=== PATIENT | male | born 1945 | race Caucasian/White ===

== ENCOUNTER 2016-12-02 01:39 | Inpatient (IN) | payer MEDICARE, OTHER ==
[2016-12-02] VITALS (12 sets, daily range): BP systolic 83–116; BP diastolic 45–68
[~2016-12-02] VITALS: Ht 182.9 cm; Wt 103.0 kg
[~2016-12-02 01:39] MED LIST: AMOX/K CLAV875 M1 PO; BENICAR20 MG PO; CHERATUSSIN OR; CRESTOR20 MG PO; LIPITOR20 MG OR; MEDDOSEPAK PO; METOPROL TAR25 MG PO; NORVASC5 MG OR; PLAVIX75 MG PO; ZPAK PO
[2016-12-02 02:21] LABS: HEMATOCRIT 34.1 % (39.0-50.0); HEMOGLOBIN 11.4 g/dl (14.0-18.0); IMMATURE GRANULOCYTES 0.3 % (0.0-1.0); MEAN CELL VOLUME 83.4 fL CALC (80.0-100.0); MEAN CORPUSCULAR HGB 27.9 pG CALC (26.0-32.0); MEAN CORPUSCULAR HGB CONC 33.4 g/L CALC (32.0-36.0); NEUT# 4.81 thou/uL (1.82-7.42); RED BLOOD COUNT 4.09 mill/uL (4.70-6.10); RED CELL DISTRI WIDTH 13.3 % (11.5-15.5)
[2016-12-02] MEDS ORDERED: ASPIRIN325 MG PO (02:26)
[2016-12-02 02:41] LABS: ALBUMIN 4.1 g/dL (3.2-5.0); ALKALINE PHOSPHATASE 77 u/l (38-126); ANION GAP 19 (6-22 (CALC)); BILIRUBIN, TOTAL 0.8 mg/dL (0.0-1.4); BUN 27 mg/dL (8-23); BUN/CREATININE RATIO 21 (12-20 (CALC)); CALCIUM 9.3 mg/dL (8.4-10.2); CARBON DIOXIDE 23 mmol/l (22-30); CHLORIDE 104 mmol/l (95-108); CREATININE 1.3 mg/dL (0.7-1.3); GFR 55 ML/MIN (>=60 (CALC)); GFR FOR AFR.AMER. > 60 ML/MIN (>=60 (CALC)); GLUCOSE 108 mg/dL (82-115); POTASSIUM 4.4 mmol/l (3.5-5.1); SGOT/AST 21 u/l (19-48); SGPT/ALT 38 u/l (11-66); SODIUM 142 mmol/l (137-146)
[2016-12-02 02:49] LABS: URINE BILIRUBIN - DIPSTICK NEGATIVE (NEGATIVE); URINE BLOOD DIPSTICK SMALL (NEGATIVE); URINE CLARITY CLEAR; URINE COLOR YELLOW; URINE GLUCOSE - DIPSTICK NEGATIVE (NEGATIVE); URINE KETONE NEGATIVE (NEGATIVE); URINE LEUK ESTERASE NEGATIVE (NEGATIVE); URINE NITRITE - DIPSTICK NEGATIVE (Negative); URINE PROTEIN - DIPSTICK NEGATIVE (NEG-TRACE); URINE SPECIFIC GRAVITY 1.025; URINE UROBILINOGEN - DIPSTICK 0.2 E.U./dL (0.2)
[2016-12-02 03:16] LABS: URINE BACTERIA RARE hpf; URINE SQUAMOUS EPITHELIAL CELL RARE EPI/hpf (0-FEW); URINE WBC 0-2 WBC/hpf (0-5)
[2016-12-02 10:34] LABS: CHOLESTEROL HDL RATIO 3.5 (<4.4 (CALC)); MAGNESIUM 1.3 mg/dL (1.6-2.3)
[2016-12-03 04:20] VITALS: BP 101/53
[2016-12-03 07:37] VITALS: BP 122/59
[2016-12-03 10:06] LABS: HEMATOCRIT 31.7 % (39.0-50.0); HEMOGLOBIN 10.4 g/dl (14.0-18.0); IMMATURE GRANULOCYTES 0.3 % (0.0-1.0); MEAN CELL VOLUME 84.3 fL CALC (80.0-100.0); MEAN CORPUSCULAR HGB 27.7 pG CALC (26.0-32.0); MEAN CORPUSCULAR HGB CONC 32.8 g/L CALC (32.0-36.0); NEUT# 2.37 thou/uL (1.82-7.42); RED BLOOD COUNT 3.76 mill/uL (4.70-6.10); RED CELL DISTRI WIDTH 13.5 % (11.5-15.5)
[2016-12-03 10:17] LABS: ANION GAP 14 (6-22 (CALC)); BUN 16 mg/dL (8-23); BUN/CREATININE RATIO 16 (12-20 (CALC)); CALCIUM 8.9 mg/dL (8.4-10.2); CARBON DIOXIDE 25 mmol/l (22-30); CHLORIDE 106 mmol/l (95-108); GFR > 60 ML/MIN (>=60 (CALC)); GFR FOR AFR.AMER. > 60 ML/MIN (>=60 (CALC)); GLUCOSE 130 mg/dL (82-115); MAGNESIUM 1.9 mg/dL (1.6-2.3); POTASSIUM 4.2 mmol/l (3.5-5.1); SODIUM 141 mmol/l (137-146)
[2016-12-03 11:20] VITALS: BP 114/67
[2016-12-03] MEDS ORDERED: FLORASTOR250 M1 PO (12:45)
[2016-12-03] MEDS ORDERED: KEFLEX500 M1 PO (12:45)
== END 2016-12-03 13:25 | disposition home or self-care (01) | DRG 153 ==
LOC: ED 01:39 → ED-I 03:15 → ED 03:35 → MS2 03:36
PROVIDERS: Emergency Medicine; Nurse Practitioner Family; ADMIT Internal Medicine; ATTEND Internal Medicine
DX: J02.0 Streptococcal pharyngitis (principal); N17.9 Acute kidney failure, unspecified; I95.9 Hypotension, unspecified; E86.0 Dehydration; E83.42 Hypomagnesemia; D64.9 Anemia, unspecified; I10 Essential (primary) hypertension; E78.5 Hyperlipidemia, unspecified; I25.10 Atherosclerotic heart disease of native coronary artery without angina pectoris; I25.2 Old myocardial infarction; Z95.5 Presence of coronary angioplasty implant and graft

== ENCOUNTER 2016-12-25 01:11 | Inpatient (IN) | payer MEDICARE, OTHER ==
[~2016-12-25] VITALS: Ht 182.9 cm; Wt 100.2 kg
[2016-12-25] VITALS (8 sets, daily range): BP systolic 80–132; BP diastolic 38–69
[~2016-12-25 01:11] MED LIST changes: +ASPIRIN325 MG PO; +FLORASTOR250 M1 PO; +KEFLEX500 M1 PO
[2016-12-25 01:54] LABS: HEMATOCRIT 36.4 % (39.0-50.0); IMMATURE GRANULOCYTES 0.3 % (0.0-1.0); MEAN CELL VOLUME 83.9 fL CALC (80.0-100.0); MEAN CORPUSCULAR HGB 27.6 pG CALC (26.0-32.0); NEUT# 6.03 thou/uL (1.82-7.42); RED BLOOD COUNT 4.34 mill/uL (4.70-6.10); RED CELL DISTRI WIDTH 13.6 % (11.5-15.5)
[2016-12-25 02:16] LABS: ALBUMIN 4.2 g/dL (3.2-5.0); CALCIUM 9.4 mg/dL (8.4-10.2); CREATININE 1.5 mg/dL (0.7-1.3); POTASSIUM 4.6 mmol/l (3.5-5.1); TOTAL PROTEIN 7.1 g/dL (6.3-8.2)
[2016-12-25 02:41] LABS: URINE BILIRUBIN - DIPSTICK NEGATIVE (NEGATIVE); URINE BLOOD DIPSTICK SMALL (NEGATIVE); URINE CLARITY CLEAR; URINE COLOR YELLOW; URINE GLUCOSE - DIPSTICK NEGATIVE (NEGATIVE); URINE KETONE NEGATIVE (NEGATIVE); URINE LEUK ESTERASE NEGATIVE (NEGATIVE); URINE NITRITE - DIPSTICK NEGATIVE (Negative); URINE PROTEIN - DIPSTICK TRACE mg/dL (NEG-TRACE); URINE SPECIFIC GRAVITY 1.025; URINE UROBILINOGEN - DIPSTICK 0.2 E.U./dL (0.2)
[2016-12-25 02:59] LABS: URINE BACTERIA FEW hpf; URINE SQUAMOUS EPITHELIAL CELL FEW EPI/hpf (0-FEW)
[2016-12-26 00:07] VITALS: BP 100/60
[2016-12-26 04:10] VITALS: BP 103/53
[2016-12-26 07:55] VITALS: BP 111/47
[2016-12-26 11:05] VITALS: BP 99/48
[2016-12-26 11:21] LABS: ANION GAP 14 (6-22 (CALC)); BUN 18 mg/dL (8-23); BUN/CREATININE RATIO 19 (12-20 (CALC)); CALCIUM 8.8 mg/dL (8.4-10.2); CARBON DIOXIDE 25 mmol/l (22-30); CHLORIDE 110 mmol/l (95-108); CREATININE 0.9 mg/dL (0.7-1.3); GFR > 60 ML/MIN (>=60 (CALC)); GFR FOR AFR.AMER. > 60 ML/MIN (>=60 (CALC)); GLUCOSE 118 mg/dL (82-115); POTASSIUM 4.9 mmol/l (3.5-5.1); SODIUM 144 mmol/l (137-146)
[2016-12-26] MEDS ORDERED: AMOX/K CLAV875 M1 PO (13:00)
[2016-12-26] MEDS ORDERED: ADLT ASA LOW81 MG PO (13:00)
== END 2016-12-26 15:01 | disposition home or self-care (01) | DRG 864 ==
LOC: ED 01:11 → ED-I 03:00 → ED 03:28 → MS2 03:29
PROVIDERS: Emergency Medicine; Internal Medicine; ADMIT Internal Medicine; ATTEND Internal Medicine
DX: R50.9 Fever, unspecified (principal); N17.9 Acute kidney failure, unspecified; E86.0 Dehydration; I10 Essential (primary) hypertension; J02.0 Streptococcal pharyngitis; I25.10 Atherosclerotic heart disease of native coronary artery without angina pectoris; N52.9 Male erectile dysfunction, unspecified; E78.5 Hyperlipidemia, unspecified; I25.2 Old myocardial infarction; Z95.5 Presence of coronary angioplasty implant and graft
CPT/HCPCS: Q9967

== ENCOUNTER 2018-03-02 09:44 | Day surgery (SDC) | payer MEDICARE, OTHER ==
[~2018-03-02] VITALS: Ht 182.9 cm; Wt 106.6 kg
[~2018-03-02 09:44] MED LIST changes: +ADLT ASA LOW81 MG PO; +ASPIRIN81 MG PO
[2018-03-02 14:35] VITALS: BP 124/71
== END 2018-03-02 15:25 | disposition home or self-care (01) ==
LOC: ENDO 09:44
PROVIDERS: ATTEND Surgery
PROC: 0DJD8ZZ Inspection of Lower Intestinal Tract, Via Natural or Artificial Opening Endoscopic (ICD-10-PCS; principal; 2018-03-02)
DX: Z12.11 Encounter for screening for malignant neoplasm of colon (principal); K57.30 Diverticulosis of large intestine without perforation or abscess without bleeding; K64.8 Other hemorrhoids; Z80.0 Family history of malignant neoplasm of digestive organs; I25.10 Atherosclerotic heart disease of native coronary artery without angina pectoris; Z95.5 Presence of coronary angioplasty implant and graft

== ENCOUNTER 2021-02-27 06:54 | Observation (INO) | payer MEDICARE, OTHER ==
[~2021-02-27] VITALS: Ht 182.9 cm; Wt 103.9 kg
[2021-02-27 07:38] LABS: HEMATOCRIT 38.6 % (39.0-50.0); HEMOGLOBIN 12.5 g/dl (14.0-18.0); IMMATURE GRANULOCYTES 0.3 % (0.0-5.0); MEAN CORPUSCULAR HGB 29.3 pG CALC (26.0-32.0); MEAN CORPUSCULAR HGB CONC 32.4 g/dL CAL (32.0-36.0); NEUT# 4.68 thou/uL (1.82-7.42); RED BLOOD COUNT 4.27 mill/uL (4.70-6.10); RED CELL DISTRI WIDTH 13.9 % (11.5-15.5)
[2021-02-27 07:41] LABS: MEAN CELL VOLUME 90.4 fL CALC (80.0-100.0)
[2021-02-27 07:56] LABS: ALBUMIN 4.1 g/dL (3.2-5.0); ALKALINE PHOSPHATASE 79 u/l (38-126); ANION GAP 14 (6-22 (CALC)); BILIRUBIN, TOTAL 1.1 mg/dL (0.0-1.4); BUN 19 mg/dL (8-23); BUN/CREATININE RATIO 18 (12-20 (CALC)); CARBON DIOXIDE 25 mmol/l (22-30); CHLORIDE 106 mmol/l (95-108); GFR > 60 ML/MIN (>=60 (CALC)); GFR FOR AFR.AMER. > 60 ML/MIN (>=60 (CALC)); POTASSIUM 4.1 mmol/l (3.5-5.1); SGOT/AST 25 u/l (19-48); SODIUM 141 mmol/l (137-146); TOTAL PROTEIN 7.2 g/dL (6.3-8.2)
[2021-02-27 08:08] LABS: MYOGLOBIN 100 ng/mL (0 - 121)
[2021-02-27] MEDS ORDERED: ATORVASTATIN CA40 MG PO (08:23)
[2021-02-27] MEDS ORDERED: DIOVAN HC1 PO (08:23)
[2021-02-27] MEDS ORDERED: ROSUVASTATIN CA10 MG PO (08:24)
[2021-02-27 09:11] LABS: URINE BILIRUBIN - DIPSTICK NEGATIVE (NEGATIVE); URINE BLOOD DIPSTICK MODERATE (NEGATIVE); URINE COLOR YELLOW; URINE GLUCOSE - DIPSTICK NEGATIVE (NEGATIVE); URINE KETONE NEGATIVE (NEGATIVE); URINE LEUK ESTERASE NEGATIVE (NEGATIVE); URINE PH 5.5 (4.5-8.0); URINE UROBILINOGEN - DIPSTICK 0.2 E.U./dL (0.2)
[2021-02-27 09:13] LABS: URINE NITRITE - DIPSTICK NEGATIVE (Negative)
[2021-02-27 09:19] LABS: URINE PROTEIN - DIPSTICK NEGATIVE (NEG-TRACE)
[2021-02-27 09:22] LABS: URINE RBC 0-2 RBC/hpf (0-5)
[2021-02-27 13:44] VITALS: BP 150/78
[2021-02-27 15:23] VITALS: BP 146/76
[2021-02-27 19:00] VITALS: BP 132/72
[2021-02-28] VITALS: BP 135/62
[2021-02-28 04:00] VITALS: BP 137/63
[2021-02-28 05:31] LABS: HEMATOCRIT 38.7 % (39.0-50.0); HEMOGLOBIN 12.6 g/dl (14.0-18.0); MEAN CELL VOLUME 90.6 fL CALC (80.0-100.0); MEAN CORPUSCULAR HGB 29.5 pG CALC (26.0-32.0); MEAN CORPUSCULAR HGB CONC 32.6 g/dL CAL (32.0-36.0); RED BLOOD COUNT 4.27 mill/uL (4.70-6.10); RED CELL DISTRI WIDTH 13.7 % (11.5-15.5)
[2021-02-28 06:02] LABS: ANION GAP 13 (6-22 (CALC)); BUN 17 mg/dL (8-23); BUN/CREATININE RATIO 16 (12-20 (CALC)); CALCULATED LDLCHOLESTEROL 49 mg/dL (62-129 (CALC)); CARBON DIOXIDE 28 mmol/l (22-30); CHLORIDE 101 mmol/l (95-108); CHOLESTEROL HDL RATIO 3.5 (<4.4 (CALC)); CREATININE 1.1 mg/dL (0.7-1.3); GFR > 60 ML/MIN (>=60 (CALC)); GFR FOR AFR.AMER. > 60 ML/MIN (>=60 (CALC)); HDL CHOLESTEROL 24 mg/dL (>=40); MAGNESIUM 1.6 mg/dL (1.6-2.3); POTASSIUM 3.8 mmol/l (3.5-5.1); SODIUM 138 mmol/l (137-146); TOTAL CHOLESTEROL 85 mg/dl (0-199); TOTAL TRIGLYCERIDES 61 mg/dl (30-149); VLDL CHOLESTROL 12 mg/dl (0-38 (CALC))
[2021-02-28 08:00] VITALS: BP 145/60
[2021-02-28] MEDS ORDERED: LASIX20 MG PO (11:10)
[2021-02-28] MEDS ORDERED: MEDDOSEPAK PO (11:10)
[2021-02-28] MEDS ORDERED: ZPAK PO (11:10)
[2021-02-28 11:55] VITALS: BP 149/65
== END 2021-02-28 13:49 | disposition home or self-care (01) ==
LOC: ED 06:54 → ED-I 10:00 → ED 10:09 → MS2 10:10
PROVIDERS: Emergency Medicine; Nurse Practitioner; ADMIT Internal Medicine; ATTEND Internal Medicine
DX: R07.9 Chest pain, unspecified (principal); J06.9 Acute upper respiratory infection, unspecified; I10 Essential (primary) hypertension; I25.10 Atherosclerotic heart disease of native coronary artery without angina pectoris; I44.7 Left bundle-branch block, unspecified; E78.5 Hyperlipidemia, unspecified; K76.9 Liver disease, unspecified; Z95.5 Presence of coronary angioplasty implant and graft; Z20.822 Contact with and (suspected) exposure to COVID-19
CPT/HCPCS: J1650; J2060; Q9967